=== PATIENT | male | born 1940 | race Caucasian/White ===

== ENCOUNTER → 2019-09-21 10:06 | Outpatient (CLI) | payer MEDICARE, OTHER ==
[2015-05-19 07:40] VITALS: BMI 23.7
[~2019-09-21 10:06] MED LIST: BAYER CHEWABLE81 MG PO; GABAPENTIN100 MG PO; LOPRESSOR25 MG PO
== END | disposition home or self-care (01) ==
LOC: D.HCCECHO 10:06
PROVIDERS: ATTEND Internal Medicine Cardiovascular Disease
DX: I25.10 Atherosclerotic heart disease of native coronary artery without angina pectoris (principal)

== ENCOUNTER → 2020-11-04 09:04 | Outpatient (CLI) | payer MEDICARE, OTHER ==
[2015-05-19 07:40] VITALS: BMI 23.7
== END | disposition home or self-care (01) ==
LOC: D.HCCECHO 09:04
PROVIDERS: ATTEND Internal Medicine Cardiovascular Disease
DX: I10 Essential (primary) hypertension (principal)

== ENCOUNTER 2020-11-15 06:32 | Day surgery (SDC) | payer MEDICARE, OTHER ==
[~2020-11-15] VITALS: Ht 180.3 cm; Wt 76.0 kg
--- NOTE | ~2020-11-15 | HEMODYNAMI ---
PATIENT:YSABEL SON MEDICAL RECORD: [id number] : 36 LOCATION:[facility] ADMISSION DATE: 11/15/20 Generatedon:18:31 Patient name: YSABEL SON Patient #: [id number] SSN: [id number] : 1940 Date of study: 11/15/2020 Page: Of Hemodynamic Procedure Report Patient Data Patient Demographics Procedure consent was obtained First Name: YSABEL Gender: Male Last Name: HUY : 1940 Patient #: [id number] Age: 80 year(s) Race: SSN: [id number] Additional ID: [id number] Contact details Address: [address] [place] [address] ROAD State: [place] City: [place] Zip code: [address] Past Medical History Allergies: No known allergies Admission Admission Data Admission Date: 11/15/2020 Admission Time: 6:32 Arrival Date: 11/15/2020 Arrival Time: 0:00 Admit Source: Other Insurance Payor: Medicare [facility] #: [id number] Height (in.): 62 BSA: 1.75 (m2) Height (cm.): 157.48 BMI: 29.63 (kg/m2) Weight (lbs.): 162 Weight (kg.): 73.48 Procedure Procedure Types Cath Procedure Diagnostic Procedure LHC LHC w/Coronaries w/Grafts Sedation Charges Moderate Sedation 10-24 minutes Procedure Description Procedure Date Procedure Date: 11/15/2020 Procedure Start Time: 8:09 Procedure End Time: 8:28 Procedure Staff Name Function Wayne Jeffers MD Performing Physician Elle Cortez RT Monitor Barby Bowman RN Nurse Donovan Louis RN Nurse Radha Santana RT Scrub Procedure Data Cath Procedure Fluoroscopy Diagnostic fluoroscopy Total fluoroscopy Time: 3.8 time: 3.8 min min Diagnostic fluoroscopy Total fluoroscopy dose: 577 dose: 577 mGy mGy Contrast Material Contrast Material Type Amount (ml) Isovue 370 63 Entry Location Entry Primary Successful Side Size Upsize Upsize Entry Closure Succes sful Closure Location (Fr) 1 (Fr) 2 (Fr) Remarks Device Remarks Femoral 5 Fr Exoseal artery Estimated blood loss: 5 ml Diagnostic catheters Device Type Used For End Catheter Placement MULTIPACK JL 4.0 5Fr Left Coronary catheter Angiography DIAGNOSTIC JL 5 5Fr Left Coronary catheter ([id number]) Angiography DIAGNOSTIC AR MOD 5Fr Right Coronary Catheter ([id number]) Angiography DIAGNOSTIC AR MOD 5Fr SVG Angiography Catheter ([id number]) DIAGNOSTIC IM 5Fr Internal mammary catheter ([id number]) arteriography MULTIPACK Pigtail 5 Fr LV Angiography catheter Procedure Complications No complications Procedure Medications Medication Administration Route Dosage Oxygen etCO2 Nasal cannula 2 l/min Lidocaine 2% added to field 20 Heparin Flush Bag added to field 2 bags (1000units/500ml NS) 0.9% NaCl I.V. 100 ml/hr Fentanyl I.V. 25 mcg Fentanyl I.V. 25 mcg Versed I.V. 0.5 mg Hemodynamics Rest BSA: 1.75 (m2) O2 Consumption: Estimated: 188.64 (ml/min) O2 Consumption indexed : Estimated:107.79 (ml/min/m) Heart Rate: 54 (bpm) Pressure Samples Time Site Value (mmHg) Purpose Heart Use Rate(bpm) 8:21 LV 103/1,31 Snapshot 58 8:21 LV 107/-1,20 Snapshot 57 Gradients Valve Time Site Site Mean SEP/DFP Peak To Heart Use 1 2 (mmHg) (sec/min) Peak Rate (mmHg) (bpm) Aortic 8:21 LV AO 57 Snapshots Pre Cath Intra NCS Post Cath Vital Signs Time Heart Resp SPO2 etCO2 NIBP (mmHg) Rhythm Pain Sedation Rate (ipm) (%) (mmHg) Status Level (bpm) 7:54:54 55 17 97 0 148/81(100) SB 0 (11) 10(A) , No pain 7:59:10 55 19 97 3.7 116/69(86) SB 0 (11) 10(A) , No pain 8:03:16 60 18 93 1.4 116/74(90) NSR 0 (11) 10(A) , No pain 8:07:26 55 16 95 11.9 115/65(82) SB 0 (11) 10(A) , No pain 8:11:34 55 15 96 1.4 109/67(80) SB 0 (11) 9(A) , No pain 8:15:41 56 15 92 0.7 106/60(79) SB 0 (11) 9(A) , No pain 8:19:49 57 15 93 0 100/57(74) SB 0 (11) 10(A) , No pain 8:23:53 64 14 94 0 102/64(75) NSR 0 (11) 10(A) , No pain 8:27:57 55 14 96 0.7 104/67(76) NSR 0 (11) 10(A) , No pain Medications Time Medication Route Dose Verified Delivered Reason Notes Effe ctiveness by by 7:55:20 Oxygen etCO2 2 Wayne Donovan used for Nasal l/min Zeyad Louis RN procedure cannula 7:55:28 Lidocaine 2% added 20ml Awyne Wayne for local to vial Zeyad Jeffers MD anesthetic field 7:55:34 Heparin Flush added 2 Wayne Wayne used for Bag to bags Zeyad Jeffers MD procedure (1000units/500ml field NS) 7:55:43 0.9% NaCl I.V. 100 Wayne Buffie Per ml/hr Zeyad Bowman RN physician 8:08:08 Fentanyl I.V. 25 Wayne Donovan for mcg Zeyad Louis RN sedation 8:08:25 Versed I.V. 0.5 Wayne Donovan for mg Zeyad Louis RN sedation 8:10:18 Fentanyl I.V. 25 Wayne Donovan for mcg Zeyad Louis RN sedation Procedure Log Time Note 7:22:16 Arrival Date: 11/15/2020 12:00:00 AM 7:22:33 Admit Source: Other 7:22:39 Insurance Payor : Medicare 7:23:07 Patient Weight : 162 lbs 7:23:22 Patient Height : 62 inches 7:40:47 Barby Bowman RN sent for patient. Start room use. 7:40:48 Time tracking: Regular hours (M-F 7:00 - 5:00) 7:40:53 Plan of Care:Hemodynamics will remain stable., Cardiac rhythm will remain stable., Comfort level will be maintained., Respiratory function will remain adequate., Patient/ family verbilizes understanding of procedure., Procedure tolerated without complication., Recovers from procedure without complications.. 7:47:42 Patient received from Pre/Post Procedure Room to CCL 1 Alert and oriented. Tansferred to table in Supine position. 7:47:45 Signed procedure consent form obtained from patient. 7:47:46 Warm blankets applied, and mohsen hugger turned on for patient comfort. 7:47:46 Correct patient and procedure confirmed by team. 7:47:47 ECG and BP/O2 sat monitors applied to patient. 7:47:48 Full Disclosure recording started 7:48:03 H&P Date Dictated: 11/01/2020 Within 30 days and on chart., H&P Addendum completed by physician on day of procedure. (MUST COMPLETE FOR ALL OUTPATIENTS). 7:48:04 Pre-procedure instructions explained to patient. 7:48:05 Pre-op teaching completed and patient verbalized understanding. 7:48:07 Family in patients room. 7:48:10 Patient NPO since Midnight. 7:48:17 Patient allergic to No known allergies 7:48:21 Is the patient allergic to Iodine/contrast media? No. 7:48:23 Is patient on blood thinner?No 7:48:28 ACC The patient was administered the following blood thiners within the last 24 hours: None 7:48:34 Previous problem with sedation/anesthesia? No ? 7:48:35 Snore? Yes 7:48:36 Sleep apnea? No 7:48:38 Deviated septum? No 7:48:38 Opens mouth fully? Yes 7:48:39 Sticks out tongue? Yes 7:48:41 Airway obstruction? No ? 7:48:42 Dentures? No ? 7:48:55 Pre procedure: right dorsailis pedis pulse 2+ Normal; easily identifiable; not easily obliterated 7:49:00 Patient pain scale 0/10 ?. 7:49:10 IV patent on arrival in left forearm with 0.9% NaCl at KVO. 7:49:15 Lab results completed and on chart. 7:49:45 Stress Test: yes; abnormal Reversible iscemia inferior segments 7:49:51 Right groin area was prepped with chlora-prep and draped in sterile fashion 7:49:53 Alarms reviewed by R. N. 7:49:53 Sharps counted by scrub and verified by R.N. 7:53:53 Vital chart was started 7:55:20 Oxygen 2 l/min etCO2 Nasal cannula was administered by Donovan Louis RN; used for procedure; Verbal order read back and verified. 7:55:28 Lidocaine 2% 20ml vial added to field was administered by Wayne Jeffers MD; for local anesthetic; Verbal order read back and verified. 7:55:34 Heparin Flush Bag (1000units/500ml NS) 2 bags added to field was administered by Wayne Jeffers MD; used for procedure; Verbal order read back and verified. 7:55:43 0.9% NaCl 100 ml/hr I.V. was administered by Barby Bowman RN; Per physician; Verbal order read back and verified. 7:56:35 Physician arrived 7:59:09 Bleeding risk 0.9%. 7:59:24 Risk of Mortality: 0.2 7:59:26 Risk of blood transfusion: 0.9 7:59:29 Risk of NESS: 1.5 7:59:33 Use device set Femoral Dx 7:59:34 ACIST Syringe (43274) opened to sterile field. 7:59:35 Bag Decanter (2002S) opened to sterile field. 7:59:35 Medline Cath Pack ([id number]) opened to sterile field. 7:59:37 ACIST Hand Control (23679) opened to sterile field. 7:59:38 ACIST Manifold (33506) opened to sterile field. 7:59:38 DIAGNOSTIC Multipack 5Fr catheter set ([id number]) opened to sterile field. 7:59:40 EMERALD Guide Wire (789-420) opened to sterile field. 7:59:41 SHEATH 5FR [place] (ULH578) opened to sterile field. 8:01:16 Rhythm: sinus bradycardia 8:07:21 Final Timeout: patient, procedure, and site verified with staff and physician. All members of the team are in agreement. 8:07:22 Right groin site verified by team. 8:07:27 Fire Safety Assessment: A--An alcohol-based skin anteseptic being used preoperatively., C--Open oxygen or nitrous oxide is being used., D--An ESU, laser, or fiber-optic light is being used. 8:07:31 Physical assessment completed. ASA score P 2 - A patient with mild systemic disease as per Wayne Jeffers MD. 8:07:37 2) 60-89 Mildly reduced kidney function, and other findings (as for stage 1) point to kidney disease. 8:07:40 Maximum allowable contrast dose (3.7 X eGFR X 0.75)210 ml. 8:07:43 Sedation plan: IV Moderate Sedation Medication:Versed, Fentanyl 8:08:08 Fentanyl 25 mcg I.V. was administered by Donovan Louis RN; for sedation; Verbal order read back and verified. 8:08:24 Procedure started. 8:08:25 Versed 0.5 mg I.V. was administered by Donovan Louis RN; for sedation; Verbal order read back and verified. 8:08:29 Zero performed for pressure channel P1 8:09:00 Local anesthetic to right femoral artery with Lidocaine 2% by Wayne Jeffers MD.INITIAL ACCESS ONLY 8:09:45 Baseline sample Acquired. 8:10:17 A 5 Fr sheath was inserted into the Femoral artery 8:10:18 Fentanyl 25 mcg I.V. was administered by Donovan Louis RN; for sedation; Verbal order read back and verified. 8:10:51 A MULTIPACK JL 4.0 5Fr catheter was advanced over the wire and used for Left Coronary Angiography. catheter removed, unable to cannulate LCA. 8:13:14 A DIAGNOSTIC JL 5 5Fr catheter ([id number]) was advanced over the wire and used for Left Coronary Angiography. 8:14:27 Catheter removed. 8:15:26 A DIAGNOSTIC AR MOD 5Fr Catheter ([id number]) was advanced over the wire and used for Right Coronary Angiography. 8:16:29 A DIAGNOSTIC AR MOD 5Fr Catheter ([id number]) was advanced over the wire and used for SVG Angiography.to RCA 8:16:56 Catheter removed. 8:18:19 A DIAGNOSTIC IM 5Fr catheter ([id number]) was advanced over the wire and used for Internal mammary arteriography.to LAD 8:19:52 Catheter removed. 8:20:25 A MULTIPACK Pigtail 5 Fr catheter was advanced over the wire and used for LV Angiography. 8:20:51 LV gram done using HERNANDEZ 8:20:52 LV hemodynamics recorded. 8:20:55 Injector settings: Ml/sec: 10, Volume: 20, 8:21:32 EF : 50 % 8:21:57 Catheter removed. 8:21:59 EXOSEAL 5Fr (EX500) opened to sterile field. 8:22:00 Tegaderm 4 x 4 (1626W) opened to sterile field. 8:22:34 Sheath removed intact; hemostasis achieved with Exoseal to the Femoral artery. 8:23:23 Procedure ended.(Physican Out) 8:23:37 Fluoroscopy time 03.80 minutes. 8:23:41 Flurop Dose total: 577 8:23:41 Fluoroscopy dose: 577 mGy 8:23:47 Dose Area Product 17.4 mGy/cm. 8:23:50 Contrast amount:Isovue 370 63ml. 8:23:52 Maximum allowable dose exceeded? No. 8:23:53 Sharps counted by scrub and verified by R.N. 8:23:55 Insertion/operative site no bleeding no hematoma. 8:23:58 Post-op/insertion site Right Femoral artery dressed using a 4 x 4 and Tegaderm. 8:24:01 Post right femoral artery:stable, clean and dry 8:24:02 Post Procedure Pulses reassessed and unchanged 8:24:05 Post-procedure physical assessment completed. ASA score P 2 - A patient with mild systemic disease as per Wayne Jeffers MD. 8:24:07 Post procedure rhythm: unchanged. 8:24:09 Estimated blood loss: 5 ml 8:24:10 Post procedure instruction explained to patient.Patient verbalizes understanding. 8:24:10 Patient needs reinforcement of post procedure teaching. 8:24:42 Procedure type changed to Cath procedure, Diagnostic procedure, LHC, LHC w/Coronaries w/Grafts, Sedation Charges, Moderate Sedation 10-24 minutes 8:25:27 Procedure and supply charges have been captured, reviewed, submitted and are correct. 8:25:32 Procedure Complication : No complications 8:25:36 Operative report dictated upon procedure completion. 8:25:36 See physician's report for complete and final results. 8:28:09 Report given to Pre/Post Procedure Room. 8:28:12 Patient transfered to Pre/Post Procedure Room with Stretcher. 8:28:24 Procedure ended. 8:28:24 Full Disclosure recording stopped 8:30:22 Radha Santana RT(R) was relieved by Elle Cortez RT(R) as monitoring person 8:30:41 Elle Counts RT(R) was relieved by Elle Counts RT(R) as monitoring person 8:31:39 Vital chart was stopped Device Usage Item Name Manufacture Quantity Catalog Hospital Part Current Minimal L ot# / Number Charge Number Stock Stock Serial# Code ACIST Acist 1 91909 982860 912340 102129 20 Syringe Medical (29090) Systems Inc Bag Microtek 1 2001S 607539 91189 576949 5 Decanter Medical Inc. () Medline Medline 1 [id number] 823044 93143 178714 5 Cath Pack ([id number]) ACIST Hand Acist 1 64479 779534 665352 539312 5 Control Medical (23031) Systems Inc ACIST Acist 1 44326 637041 553466 226857 5 Manifold Medical (11801) Systems Inc DIAGNOSTIC Cardinal 1 HR8777 616289 78902 546478 30 Multipack Health 5Fr catheter set (GT6472) EMERALD Cardinal 1 502-455 338306 547361 318559 5 Guide Wire Health (502-455) SHEATH 5FR Terumo 1 FUK769 473684 340401 621695 5 [place] (IWB578) MULTIPACK Cardinal 1 407377 5 JL 4.0 5Fr Health catheter DIAGNOSTIC Cardinal 1 [id number] 881215 016614 970828 5 JL 5 5Fr Health catheter (137277C) DIAGNOSTIC Cardinal 1 [id number] 722349 370205 811470 15 AR MOD 5Fr Health Catheter (134488Z) DIAGNOSTIC Cardinal 1 [id number] 826333 845562 897577 5 IM 5Fr Health catheter ([id number]) MULTIPACK Cardinal 1 489003 5 Pigtail 5 Health Fr catheter EXOSEAL 5Fr Cardinal 1 EX500 307938 644620 526811 10 (EX500) Health Tegaderm 4 3M 1 1626W 427544 660246 472357 5 x 4 (1626W) Signature Audit [place] Stage Time Signature Unsigned Intra-Procedure 11/15/2020 Donovan Louis RN 8:30:00 AM Intra-Procedure 11/15/2020 Elle 8:30:35 AM Counts RT(R) Intra-Procedure 11/15/2020 Wayne Jeffers MD 8:31:[address] [place] [address]
[2020-11-15] MEDS ORDERED: FLOMAX0.4 MG PO (06:46)
[2020-11-15] MEDS ORDERED: BUSPAR10 MG PO (06:47)
[2020-11-15] MEDS ORDERED: GABAPENTIN300 MG PO (06:48)
[2020-11-15] MEDS ORDERED: VITAMIN E100 UNIT PO (06:50)
[2020-11-15] MEDS ORDERED: VITAMIN B-122500 MCG PO (06:51)
[2020-11-15 07:13] VITALS: BP 123/69; Ht 180.3 cm; Wt 76.0 kg
[2020-11-15 07:23] LABS: BASOPHILS 1.1 % (0-2); EOSINOPHILS 3.6 % (0-7); HEMATOCRIT 48.6 % (42.0-54.0); HEMOGLOBIN 16.6 g/dL (13.5-17.5); IMMATURE GRANULOCYTES 0.3 % (0-5); LYMPHOCYTE ABS# 1.61 10x3/uL (1.32-3.57); LYMPHOCYTES 24.9 % (15-50); MCH 32.2 pg (26.0-34.0); MCHC 34.2 g/dL (31.0-37.0); MCV 94.2 fL (80.0-100.0); MEAN PLATELET VOLUME 11.2 fL (7.4-10.4); MONOCYTES 13.3 % (2-11); NEUTROPHIL ABS# 3.68 10x3/uL (1.78-5.38); NEUTROPHILS 56.8 % (40-80); PLATELET COUNT 184 10x3/uL (130-400); RBC 5.16 10x6/uL (4.20-6.10); RDW 14.5 % (11.5-14.5); WBC 6.5 10x3/uL (4.8-10.8)
[2020-11-15 07:47] LABS: ALT (SGPT) 24 U/L (10-68); CALC OSMOLALITY 277 mosm/kg (275-300); CALCIUM 8.3 mg/dL (8.5-10.1); CARBON DIOXIDE 23.6 mmol/L (21.0-32.0); CHLORIDE - SERUM 106 mmol/L (98-107); CHOL - HDL RATIO 3.4 ratio (2.3-4.9); CHOLESTEROL, TOTAL 155 mg/dL (0-200); GLUCOSE 96 mg/dL (74-106); HDL CHOLESTEROL 45 mg/dL (32-96); LDL CHOLESTEROL 93 mg/dL (0-100); LDL-HDL RATIO 2.1 ratio (1.5-3.5); POTASSIUM - SERUM 4.4 mmol/L (3.5-5.1); SODIUM 140 mmol/L (136-145); TRIGLYCERIDE 88 mg/dL (30-200); UREA NITROGEN 10 mg/dL (7-18); eGFR NON AFRICAN AMERICAN 76 mL/min (90-120)
--- NOTE | 2020-11-15 08:35 | NUR ---
PT ARRIVED BY STRETCHER. PLACED ON MONITORS. ASSESSMENT COMPLETED. CALL LIGHT WITHIN REACH. PT IN SUPINE POSITION.
--- NOTE | 2020-11-15 08:50 | NUR ---
PT RESTING COMFORTABLY. VSS AT THIS TIME. CALL LIGHT WITHIN REACH. RIGHT GROIN DRESSING C/D/I. NO S/S OF HEMATOMA NOTED. RIGHT PEDAL PULSE PALPABLE.
--- NOTE | 2020-11-15 09:20 | NUR ---
RIGHT GROIN DRESSING C/D/I. NO S/S OF HEMATOMA NOTED. CALL LIGHT WITHIN REACH. VSS AT THIS TIME. PT RESTING COMFORTABLY. RIGHT PEDAL PULSE PALPABLE.
--- NOTE | 2020-11-15 10:00 | NUR ---
RIGHT GROIN DRESSING C/D/I. NO S/S OF HEMATOMA NOTED. RIGHT PEDAL PULSE PALPABLE. HEAD OF BED INC TO 30 DEGREES. TOLERATED WELL. SET UP WITH SANDWICH TRAY AND DRINK. DENIES NAUSEA/PAIN.
--- NOTE | 2020-11-15 10:30 | NUR ---
DR. COOPER ROUNDED AND SPOKE WITH PT AND PT'S FAMILY.
--- NOTE | 2020-11-15 10:45 | NUR ---
PIV D/C'D WITH CATH TIP INTACT. TOLERATED WELL. RIGHT GROIN DRESSING C/D/I. NO S/S OF HEMATOMA NOTED. PT INSTRUCTED TO GET UP AND DRESSED AT THIS TIME. FAMILY AT BEDSIDE TO ASSIST. CALL LIGHT LEFT WITHIN REACH.
--- NOTE | 2020-11-15 10:55 | NUR ---
PT AMBULATED TO RESTROOM. VOIDED WITHOUT DIFFICULTY. PT UNSTEADY, SO BROUGHT BACK TO ROOM IN WHEELCHAIR.
--- NOTE | 2020-11-15 11:00 | NUR ---
RIGHT GROIN DRESSING C/D/I. NO S/S OF HEMATOMA NOTED. DISCUSSED DISCHARGE INSTRUCTIONS WITH PT AND PT'S . THEY VOICED UNDERSTANDING. PT TAKEN OUT TO VEHICLE BY WHEELCHAIR. NO S/S OF DISTRESS NOTED. ALL BELONGINGS AND PAPERWORK IN HAND.
== END 2020-11-15 11:00 | disposition home or self-care (01) ==
LOC: D.CATH 06:32
PROVIDERS: ATTEND Internal Medicine Cardiovascular Disease
DX: I25.118 Atherosclerotic heart disease of native coronary artery with other forms of angina pectoris (principal); R94.39 Abnormal result of other cardiovascular function study; I10 Essential (primary) hypertension; I48.91 Unspecified atrial fibrillation; I34.0 Nonrheumatic mitral (valve) insufficiency; R07.9 Chest pain, unspecified; E78.5 Hyperlipidemia, unspecified; Z72.0 Tobacco use